=== PATIENT | female | born 1965 | race Asian ===

== ENCOUNTER → 2016-07-07 | Outpatient (CLI) | payer MEDICAID ==
[~2016-07-07] MED LIST: ASCO1CAP2 PO; ASPI-496 PO; CEPH-368 PO; CETI-158 PO; CITA10TA8 PO; FLAX100016 PO; HYDR2TAB13 PO; MONT10TA6 PO; MULT-208 PO; OMEG1CAP48 PO; PROM25SU34 PR; RED600CA2 PO
== END | disposition home or self-care (01) ==
LOC: CFH 08:13
PROVIDERS: ATTEND Neurological Surgery
DX: M50.31 Other cervical disc degeneration, high cervical region (principal); M50.322 Other cervical disc degeneration at C5-C6 level; M48.02 Spinal stenosis, cervical region; M48.07 Spinal stenosis, lumbosacral region; M47.897 Other spondylosis, lumbosacral region; G96.19 Other disorders of meninges, not elsewhere classified
CPT/HCPCS: 72110; 72141; 72148

== ENCOUNTER → 2016-12-19 | Outpatient (CLI) | payer MEDICAID ==
[~2016-12-19] MED LIST changes: +GADOBUTROL 7.5 MMOL/7.5 ML VIAL ONE; -HYDR2TAB13 PO; +HYDR2TAB29 PO
== END | disposition home or self-care (01) ==
LOC: CFH 12:47
PROVIDERS: ATTEND Psychiatry & Neurology Neurology
DX: M51.24 Other intervertebral disc displacement, thoracic region (principal); M51.34 Other intervertebral disc degeneration, thoracic region; Z12.31 Encounter for screening mammogram for malignant neoplasm of breast
CPT/HCPCS: 70553; 72157; A9585

== ENCOUNTER → 2017-01-09 | Outpatient (CLI) | payer MEDICAID ==
[~2017-01-09] MED LIST changes: -GADOBUTROL 7.5 MMOL/7.5 ML VIAL ONE
== END | disposition home or self-care (01) ==
LOC: CFH 12:53
PROVIDERS: ATTEND Obstetrics & Gynecology
DX: Z12.31 Encounter for screening mammogram for malignant neoplasm of breast (principal); Z85.3 Personal history of malignant neoplasm of breast; Z90.11 Acquired absence of right breast and nipple
CPT/HCPCS: 77063; G0202

== ENCOUNTER → 2017-07-12 | Outpatient (CLI) | payer MEDICAID ==
[~2017-07-12] MED LIST changes: +GADOBUTROL 10 MMOL/10 ML VIAL ONE
== END | disposition home or self-care (01) ==
LOC: CFH 12:42
PROVIDERS: ATTEND Obstetrics & Gynecology
DX: R92.2 Inconclusive mammogram (principal); Z85.3 Personal history of malignant neoplasm of breast; Z90.11 Acquired absence of right breast and nipple
CPT/HCPCS: A9585; C8908

== ENCOUNTER → 2017-09-26 | Outpatient (CLI) | payer MEDICAID ==
[~2017-09-26] MED LIST changes: -GADOBUTROL 10 MMOL/10 ML VIAL ONE
== END | disposition home or self-care (01) ==
LOC: CFH 08:24
PROVIDERS: ATTEND Psychiatry & Neurology Neurology
DX: M47.892 Other spondylosis, cervical region (principal)
CPT/HCPCS: 72141

== ENCOUNTER → 2018-01-11 | Outpatient (CLI) | payer MEDICAID | END | disposition home or self-care (01) | LOC: CFH 11:07 | PROVIDERS: ATTEND Obstetrics & Gynecology | DX: Z12.31 Encounter for screening mammogram for malignant neoplasm of breast (principal); Z85.3 Personal history of malignant neoplasm of breast | CPT/HCPCS: 77063; 77067 ==

== ENCOUNTER → 2018-06-18 | Outpatient (CLI) | payer MEDICAID ==
[~2018-06-18] MED LIST changes: +GADOBUTROL 7.5 MMOL/7.5 ML VIAL ONE
== END | disposition home or self-care (01) ==
LOC: CFH 13:58
PROVIDERS: ATTEND Family Medicine
DX: R92.8 Other abnormal and inconclusive findings on diagnostic imaging of breast (principal); K76.89 Other specified diseases of liver; Z85.3 Personal history of malignant neoplasm of breast
CPT/HCPCS: 77049; A9585

== ENCOUNTER 2018-11-29 12:31 | Outpatient (CLI) | payer MEDICAID | END 2018-11-29 23:59 | disposition home or self-care (01) | LOC: CFH 12:31 | PROVIDERS: ATTEND Family Medicine | DX: M18.11 Unilateral primary osteoarthritis of first carpometacarpal joint, right hand (principal) ==

== ENCOUNTER 2019-02-13 12:03 | Outpatient (CLI) | payer MEDICAID ==
[~2019-02-13 12:03] MED LIST changes: -GADOBUTROL 7.5 MMOL/7.5 ML VIAL ONE
[2019-02-13] MEDS ORDERED: SODIUM BICARBONATE 4.2%, 5ML ONE (13:36)
[2019-02-13] MEDS ORDERED: LIDOCAINE 1%, 20ML ONE (13:36)
[2019-02-13] MEDS ORDERED: LIDOCAINE 1%-EPI 1:100K, 20ML ONE (13:36)
== END 2019-02-13 23:59 | disposition home or self-care (01) ==
LOC: CFH 12:03
PROVIDERS: ATTEND Obstetrics & Gynecology
DX: R92.1 Mammographic calcification found on diagnostic imaging of breast (principal); Z85.3 Personal history of malignant neoplasm of breast; Z90.11 Acquired absence of right breast and nipple
CPT/HCPCS: 19083; 88305; J3490

== ENCOUNTER 2019-09-24 14:12 | Outpatient (CLI) | payer MEDICAID ==
[2019-09-24] MEDS ORDERED: GADOTERATE 7.5 MMOL/15 ML VIAL ONE (15:11)
== END 2019-09-24 23:59 | disposition home or self-care (01) ==
LOC: CFH 14:12
PROVIDERS: ATTEND Family Medicine
DX: N60.02 Solitary cyst of left breast (principal); K76.89 Other specified diseases of liver; Z90.11 Acquired absence of right breast and nipple; Z85.3 Personal history of malignant neoplasm of breast
CPT/HCPCS: 77049; A9575; C8908; C8937

== ENCOUNTER → 2020-07-21 | Outpatient (CLI) | payer MEDICAID | END | disposition home or self-care (01) | LOC: CFH 12:39 | PROVIDERS: ATTEND Nurse Practitioner | DX: M43.07 Spondylolysis, lumbosacral region (principal) | CPT/HCPCS: 72110 ==

== ENCOUNTER → 2020-10-11 | Outpatient (CLI) | payer MEDICAID ==
[~2020-10-11] MED LIST changes: +GADOTERATE 7.5 MMOL/15 ML VIAL ONE
== END | disposition home or self-care (01) ==
LOC: CFH 07:09
PROVIDERS: ATTEND Family Medicine
DX: Z85.3 Personal history of malignant neoplasm of breast (principal)
CPT/HCPCS: 77049; A9575; C8908